=== PATIENT | female | born 1990 | race Caucasian/White ===

== ENCOUNTER → 2017-02-09 | Outpatient (CLI) | payer OTHER, BC ==
[~2017-02-09] MED LIST: LEVO25TA5 PO; VSC/5 PO
--- NOTE | 2017-02-09 12:04 | DIAGNOSTIC IMAGING REPORT ---
RIGHT ANKLE MIN 3 VIEWS ROUTINE CLINICAL HISTORY: Right ankle pain. Evaluate for fracture. COMPARISON: None FINDINGS: Alignment of the right ankle is anatomic. No fractures identified. There is mild lateral ankle soft tissue swelling. Talar dome is intact. IMPRESSION: 1. No acute fracture or dislocation of the right ankle. 2. Mild lateral ankle soft tissue swelling. Electronically signed by: Joey Higginbotham M.D. 02/09/2017 12:02 PM Dictated Date/Time: 02/09/2017 12:01 PM
== END | disposition home or self-care (01) ==
LOC: C.RAD1850 11:25
PROVIDERS: ATTEND Emergency Medicine
DX: M25.571 Pain in right ankle and joints of right foot (principal)